=== PATIENT | male | born 1935 ===

== ENCOUNTER 2017-08-15 14:00 | Day surgery (SDC) | payer BC, MEDICARE ==
[2017-08-15] MEDS ORDERED: IOHEXOL 300 MG/ML 50 ML BTL (for RAD DIAG) OTHER ONE (14:01)
[2017-08-15] MEDS ORDERED: PRAV20TA2 PO (14:25)
[2017-08-15] MEDS ORDERED: BISO5TAB5 PO (14:25)
[2017-08-15] MEDS ORDERED: ASPI-516 CHEW (14:27)
[2017-08-15] MEDS ORDERED: MEGATAB4 (14:27)
[2017-08-15 14:30] VITALS: BP 140/79; PULSE 64; RESP 18; TEMP 97.6; O2SAT 98
[2017-08-15] MEDS ORDERED: TRIAMCINOLONE ACETONIDE 40 MG/ML VIAL ONE (15:38)
[2017-08-15 16:10] VITALS: BP 135/71; PULSE 80; RESP 16; TEMP 97.6; O2SAT 100
--- NOTE | 2017-08-15 16:10 | PD.RAD ---
Post Procedure Progress Note Pre Procedure Diagnosis: (1) Chronic low back pain with left-sided sciatica Post Procedure Diagnosis: (1) Chronic low back pain with left-sided sciatica Procedure Date: Aug 15, 2017 Supervising Radiologist: Cedrick Veliz JR Proceduralist/Assist: RT Josselin(R)(), Other Anesthesia: Local Plan of Activity Patient to Unit: ROPU Patient Condition: Good See PACS Report for procedural detail/treatment Spinal Procedure Nerve Root Injection L5 Findings: Left L5 NRI. Pt tolerated procedure well. Jr. Jose Alfredo,Cedrick Zimmerman MD Aug 15, 2017 16:10
[2017-08-15 16:25] VITALS: BP 141/73; PULSE 80; RESP 16; O2SAT 100
--- NOTE | 2017-08-15 16:57 | RADRPT ---
EXAM DATE: 08/15/2017 4:50 PM EDT AGE/SEX: 82 years / Male INDICATIONS: Patient with a history of lower back pain. CLINICAL DATA: This is the patient's initial encounter. Patient reports that signs and symptoms have been present for 1 month and indicates a pain score of 4/10. MEDICAL/SURGICAL HISTORY: . None . None COMPARISON: No prior exams available for comparison. FLUORO TIME (min): 1.53 IMAGE SERIES: 3 ACCESS SITE: Left L5 NERVE ROOT CONTRAST (cc): 1cc Omnipaque (iohexol) 300 MEDICATION(S): 40MG triamcinolone (Kenalog) IA 2CC Lidocaine IA RESPONSE: Pain Score Pre Procedure: 4/10 Pain Score Post Procedure: 0/10 . . PROCEDURE : 1. Fluoroscopically guided nerve root injection. The risks, benefits and alternatives to the procedure were explained and verbal and written consent w as obtained. The site was prepped in sterile fashion. Full sterile technique was used, including ca p, mask, sterile gloves and gown and a large sterile sheet. Hand hygiene and 2% chlorhexidine and/or betadine/alcohol prep was utilized per protocol for cutaneous antisepsis. The skin and subcutaneous tissues were infiltrated with local anesthetic solution. With fluoroscopic guidance the targeted nerve root was localized and positive contrast was injected t o confirm epidural spread. Following this the prescribed medication was injected surrounding the ner ve root sleeve. The patient's preprocedure pain and post procedure pain levels were recorded. CONCLUSION: 1. Uncomplicated fluoroscopically guided left L5 nerve root injection as above. Electronically signed by: Cedrick Veliz MD 08/15/2017 4:56 PM EDT
== END 2017-08-15 16:30 | disposition home or self-care (01) ==
LOC: HROP 14:00 → HRIP 14:01 → HROP 16:30
PROVIDERS: ATTEND Physical Medicine & Rehabilitation
DX: M54.42 Lumbago with sciatica, left side (principal)
CPT/HCPCS: 64483; J3301; Q9967